=== PATIENT | female | born 1990 | race Caucasian/White ===

== ENCOUNTER 2020-07-11 17:15 | Outpatient (CLI) | payer MEDICAID ==
[~2020-07-11] VITALS: Ht 167.6 cm; Wt 69.0 kg
[2020-07-11 18:02] LABS: MICROSCOPIC INDICATED
[2020-07-11 18:07] LABS: BASOPHILS # (AUTO) 0.03 x10^3/uL (0-0.1); BASOPHILS % (AUTO) 0 % (0-1); EOSINOPHILS # (AUTO) 0.06 x10^3/uL (0-0.4); EOSINOPHILS % (AUTO) 1 % (1-7); LYMPHOCYTES # (AUTO) 1.53 x10^3/uL (1-3.4); LYMPHOCYTES % (AUTO) 15 % (22-44); MD NO; MEAN CORPUSCULAR HEMOGLOBIN 28.6 pg (27.0-34.8); MEAN CORPUSCULAR HGB CONC 32.7 g/dL (32.4-35.8); MEAN CORPUSCULAR VOLUME 87.5 fL (80-100); MEAN PLATELET VOLUME 7.7 fL (7.4-10.4); MONOCYTES # (AUTO) 0.93 x10^3/uL (0.2-0.8); MONOCYTES % (AUTO) 9 % (2-9); NEUTROPHILS # (AUTO) 7.97 x10^3/uL (1.8-6.8); NEUTROPHILS % (AUTO) 76 % (42-75); PLATELET COUNT 250 x10^3/uL (130-400); RED BLOOD COUNT 3.56 x10^6/uL (3.82-5.3); RED CELL DISTRIBUTION WIDTH 14.2 % (9.6-15.2)
[2020-07-11 18:16] LABS: ALANINE AMINOTRANSFERASE 16 U/L (12-78); ALBUMIN 2.6 g/dL (3.4-5.0); ANION GAP 10 mmol/L (5-15); CALCIUM 8.7 mg/dL (8.5-10.1); CHLORIDE 109 mmol/L (98-107); CREATININE 0.63 mg/dL (0.55-1.02)
[2020-07-11 18:17] LABS: BILIRUBIN, DIRECT < 0.1 mg/dL (0.1-0.2)
[2020-07-11 18:18] LABS: ALKALINE PHOSPHATASE 129 U/L (45-117); BILIRUBIN,TOTAL 0.3 mg/dL (0.2-1.0); TOTAL PROTEIN 6.1 g/dL (6.4-8.2)
[2020-07-11] MEDS ORDERED: BUTALBIT/ACETAMIN/CAFF/CODEINE CAPSULE PO PRN (18:30)
== END 2020-07-11 19:46 | disposition home or self-care (01) ==
LOC: LDOP 17:15
PROVIDERS: ATTEND Obstetrics & Gynecology
DX: O26.893 Other specified pregnancy related conditions, third trimester (principal); H53.8 Other visual disturbances; Z3A.39 39 weeks gestation of pregnancy
CPT/HCPCS: 36415; 59025; 80053; 81001; 82248; 82570; 84156; 84550; 85025; 87086

== ENCOUNTER 2020-07-13 11:33 | Inpatient (IN) | payer MEDICAID ==
[~2020-07-13] VITALS: Ht 166.4 cm; Wt 69.1 kg
[2020-07-15] MEDS ORDERED: PREN1TAB60 PO (11:17)
[2020-07-15] MEDS ORDERED: OXYTOCIN 30U/ 0.9% NaCL 500ML 500 ML IV PRN (11:31)
[2020-07-15] MEDS ORDERED: OXYTOCIN 30U/ 0.9% NaCL 500ML 500 ML IV ONE (11:31)
[2020-07-15] MEDS ORDERED: MISOPROSTOL 25 MCG TABLET ONE (11:38)
[2020-07-15] MEDS ORDERED: MISOPROSTOL 200 MCG TABLET ONE (11:38)
[2020-07-15] MEDS ORDERED: OXYTOCIN 30U/ 0.9% NaCL 500ML 500 ML ONE (11:38)
[2020-07-15] MEDS ORDERED: NEWBORN KIT ONE (11:38)
[2020-07-15] MEDS ORDERED: LIDOCAINE 1%, 20ML ONE (11:38)
[2020-07-15 11:59] VITALS: BP 120/74
[2020-07-15] MEDS ORDERED: FENTANYL PF 100 MCG/2ML IV PRN (12:00)
[2020-07-15] MEDS ORDERED: CALCIUM CARBONATE 500 MG TAB.CHEW PO PRN (12:00)
[2020-07-15] MEDS ORDERED: MISOPROSTOL 25 MCG TABLET VG PRN (12:00)
[2020-07-15] MEDS ORDERED: TERBUTALINE 1 MG/ML, 1ML SQ PRN (12:00)
[2020-07-15] MEDS ORDERED: ONDANSETRON 2MG/ML, 2ML IVPush PRN (12:00)
[2020-07-15] MEDS ORDERED: TERBUTALINE 1 MG/ML, 1ML IVPush PRN (12:00)
[2020-07-15 12:10] LABS: BASOPHILS # (AUTO) 0.04 x10^3/uL (0-0.1); BASOPHILS % (AUTO) 0 % (0-1); EOSINOPHILS # (AUTO) 0.17 x10^3/uL (0-0.4); EOSINOPHILS % (AUTO) 2 % (1-7); LYMPHOCYTES % (AUTO) 15 % (22-44); MD NO; MEAN CORPUSCULAR HEMOGLOBIN 28.8 pg (27.0-34.8); MEAN CORPUSCULAR HGB CONC 33.3 g/dL (32.4-35.8); MEAN CORPUSCULAR VOLUME 86.4 fL (80-100); MONOCYTES # (AUTO) 0.99 x10^3/uL (0.2-0.8); MONOCYTES % (AUTO) 9 % (2-9); NEUTROPHILS # (AUTO) 7.92 x10^3/uL (1.8-6.8); NEUTROPHILS % (AUTO) 74 % (42-75); PLATELET COUNT 249 x10^3/uL (130-400); RED BLOOD COUNT 3.44 x10^6/uL (3.82-5.3); RED CELL DISTRIBUTION WIDTH 14.4 % (9.6-15.2)
[2020-07-15 19:27] VITALS: BP 133/75
[2020-07-15] MEDS: D5%-LACTATED RINGERS 1,000 ML IV SCH (19:31)
[2020-07-15] MEDS ORDERED: FENTANYL PF 100 MCG/2ML ONE (20:25)
[2020-07-15] MEDS: FENTANYL PF 100 MCG/2ML IVPush PRN (20:29)
[2020-07-16] MEDS ORDERED: FENTANYL PF 100 MCG/2ML ONE ×4 (01:44→15:48)
[2020-07-16] MEDS: FENTANYL PF 100 MCG/2ML IVPush PRN ×2 (01:47→07:50)
[2020-07-16] MEDS: D5%-LACTATED RINGERS 1,000 ML IV SCH ×4 (03:31→19:31)
[2020-07-16] MEDS: LACTATED RINGERS 1,000 ML IV SCH ×5 (08:46→19:31)
[2020-07-16] MEDS ORDERED: FENTANYL/BUPIV./NS/PF 250 ML EPIDCONT ONE (09:15)
[2020-07-16] MEDS ORDERED: BUPIVACAINE 0.25% ONE ×2 (09:15→15:48)
[2020-07-16 19:20] VITALS: BP 138/71
[2020-07-16] MEDS ORDERED: OXYTOCIN 30U/ 0.9% NaCL 500ML 500 ML IV ONE (19:37)
[2020-07-16] MEDS ORDERED: ONDANSETRON 2MG/ML, 2ML ONE (21:17)
[2020-07-17] MEDS: LACTATED RINGERS 1,000 ML IV SCH ×7 (01:56→23:00)
[2020-07-17] MEDS ORDERED: FENTANYL/BUPIV./NS/PF 250 ML EPIDCONT ONE (03:17)
[2020-07-17] MEDS: D5%-LACTATED RINGERS 1,000 ML IV SCH (03:31)
[2020-07-17] MEDS ORDERED: FENTANYL/BUPIV./NS/PF 250 ML EPIDCONT SCH (04:27)
[2020-07-17] MEDS ORDERED: LACTATED RINGERS 1,000 ML IVBOLUS PRN (04:30)
[2020-07-17] MEDS ORDERED: ONDANSETRON 2MG/ML, 2ML IVPush PRN (04:30)
[2020-07-17] MEDS ORDERED: EPHEDRINE 50 MG/ML, 1ML IVPush PRN (04:30)
[2020-07-17] MEDS ORDERED: BUPIVACAINE 0.25% ONE ×2 (04:53→09:17)
[2020-07-17] MEDS ORDERED: DIPHENHYDRAMINE 50 MG/ML, 1ML ONE (04:53)
[2020-07-17] MEDS ORDERED: DIPHENHYDRAMINE 50 MG/ML, 1ML IVPush ONE (06:00)
[2020-07-17] MEDS ORDERED: LIDOCAINE/MPF 2%-EPI 1:200K, 20 ML ONE ×2 (07:21→08:59)
[2020-07-17] MEDS ORDERED: AZITHROMYCIN 500 MG in SODIUM CHLORIDE 0.9% 250 ML IV ONE (09:00)
[2020-07-17] MEDS ORDERED: LIDOCAINE 2%, 20ML ONE (09:17)
[2020-07-17] MEDS ORDERED: LIDOCAINE/PF 1.5%-EPI 1:200K, 30ML ONE (09:17)
[2020-07-17] MEDS ORDERED: METOCLOPRAMIDE 5 MG/ML, 2ML ONE (09:43)
[2020-07-17] MEDS ORDERED: METOCLOPRAMIDE 5 MG/ML, 2ML IV ONE (10:00)
[2020-07-17] MEDS ORDERED: SODIUM CITRATE/CITRIC ACID 30 ML UDC PO ONE (10:00)
[2020-07-17] MEDS ORDERED: morphine SULFATE/PF 0.5 MG/ML, 10ML ONE (10:55)
[2020-07-17] MEDS ORDERED: SODIUM CHLORIDE 0.9% PF 10ML ONE (10:57)
[2020-07-17] MEDS ORDERED: CEFAZOLIN 1,000 MG ONE (10:57)
[2020-07-17] MEDS ORDERED: OXYTOCIN 10 UNITS/ML, 1ML ONE (10:57)
[2020-07-17] MEDS ORDERED: ONDANSETRON 2MG/ML, 2ML ONE (10:57)
[2020-07-17] MEDS ORDERED: WATER-INJECTION,STERILE 10 ML IV ONE (10:57)
[2020-07-17] MEDS ORDERED: PHENYLEPHRINE 10 MG/ML ONE (10:57)
[2020-07-17] MEDS ORDERED: DEXAMETHASONE 4 MG/ML, 1ML ONE (10:57)
[2020-07-17] MEDS ORDERED: KETOROLAC 30 MG/1 ML ONE (10:57)
[2020-07-17] MEDS ORDERED: LIDOCAINE 1%, 20ML ONE (11:00)
[2020-07-17] MEDS: OXYTOCIN 30U/ 0.9% NaCL 500ML 500 ML IV SCH ×2 (12:13→22:13)
[2020-07-17] MEDS ORDERED: OXYcodone/APAP 5/325MG TABLET PO PRN (12:30)
[2020-07-17] MEDS ORDERED: METHYLERGONOVINE 0.2 MG/ML IM PRN (12:30)
[2020-07-17] MEDS ORDERED: TRANEXAMIC ACID 100 MG/ML, 10ML IV ONE (12:30)
[2020-07-17] MEDS ORDERED: MISOPROSTOL 200 MCG TABLET PR PRN (12:30)
[2020-07-17] MEDS: KETOROLAC 30 MG/1 ML IV SCH ×2 (12:30→17:32)
[2020-07-17] MEDS ORDERED: MEPERIDINE/PF 50 MG/ML IM PRN (12:30)
[2020-07-17] MEDS ORDERED: SIMETHICONE 80 MG CHEW TAB PO PRN (12:30)
[2020-07-17] MEDS ORDERED: ONDANSETRON 2MG/ML, 2ML IV PRN (12:30)
[2020-07-17] MEDS ORDERED: CALCIUM CARBONATE 500 MG TAB.CHEW PO PRN (12:30)
[2020-07-17] MEDS ORDERED: morphine SULFATE 10 MG/ML, 1ML IVPush PRN (12:30)
[2020-07-17] MEDS ORDERED: RHOGAM FROM BLOOD BANK 1 NOTE EA IM/IV ONE (12:30)
[2020-07-17] MEDS ORDERED: MISOPROSTOL 200 MCG TABLET ONE (12:35)
[2020-07-17] MEDS ORDERED: TRANEXAMIC ACID 100 MG/ML, 10ML ONE (13:06)
[2020-07-17] MEDS ORDERED: METHYLERGONOVINE 0.2 MG/ML IM ONE (13:07)
[2020-07-17 14:10] VITALS: BP 110/76
[2020-07-17 14:20] VITALS: BP 105/74
[2020-07-17 16:20] VITALS: BP 105/74
[2020-07-17] MEDS ORDERED: GENTAMICIN PER PHARMACY MC PRN (17:30)
[2020-07-17] MEDS ORDERED: ACETAMINOPHEN 325 MG TABLET PO PRN (17:30)
[2020-07-17] MEDS: CLINDAMYCIN PMX 300MG/50ML 50 ML IV SCH ×2 (18:18→23:52)
[2020-07-17 19:34] LABS: MD YES; MEAN CORPUSCULAR HEMOGLOBIN 28.3 pg (27.0-34.8); MEAN CORPUSCULAR HGB CONC 32.6 g/dL (32.4-35.8); MEAN CORPUSCULAR VOLUME 87.1 fL (80-100); MEAN PLATELET VOLUME 7.6 fL (7.4-10.4); PLATELET COUNT 217 x10^3/uL (130-400); RED BLOOD COUNT 2.65 x10^6/uL (3.82-5.3); RED CELL DISTRIBUTION WIDTH 15.2 % (9.6-15.2)
[2020-07-17 19:45] VITALS: BP 98/61
[2020-07-17 19:53] LABS: <RBC MORPHOLOGY> NORMAL; BAND#(MANUAL) 0.26 x10^3/uL; BANDS%(MANUAL) 1 % (0-7); LYMPH#(MANUAL) 0.78 x10^3/uL (1-3.4); LYMPHS% (MANUAL) 3 % (22-44); MONOS#(MANUAL) 1.04 x10^3/uL (0.3-2.7); MONOS% (MANUAL) 4 % (2-9); SEG#(MANUAL) 23.92 x10^3/uL (1.8-6.8); SEGS% (MANUAL) 92 % (42-75)
[2020-07-17 19:54] LABS: <PLATELET ESTIMATE> ADEQUATE; <PLT MORPHOLOGY> NORMAL PLT MORPH
[2020-07-17] MEDS ORDERED: PHARMACOKINETIC MONITORING MC PRN (20:00)
[2020-07-17] MEDS ORDERED: GENTAMICIN 150 MG in SODIUM CHLORIDE 0.9% 50 ML IV ONE (20:00)
[2020-07-17 23:00] VITALS: BP 97/61
[2020-07-18] MEDS: KETOROLAC 30 MG/1 ML IV SCH ×3 (00:18→12:04)
[2020-07-18 03:30] VITALS: BP 102/67
[2020-07-18] MEDS: GENTAMICIN 130 MG in SODIUM CHLORIDE 0.9% 50 ML IV SCH ×2 (04:19→13:11)
[2020-07-18] MEDS: LACTATED RINGERS 1,000 ML IV SCH ×3 (04:27→12:27)
[2020-07-18] MEDS: CLINDAMYCIN PMX 300MG/50ML 50 ML IV SCH ×2 (05:37→12:04)
[2020-07-18 08:00] VITALS: BP 104/69
[2020-07-18] MEDS: DOCUSATE 100 MG CAPSULE PO PRN ×2 (08:30→19:21)
[2020-07-18] MEDS: PRENATAL VIT/IRON/FA 1 EACH TABLET PO SCH (08:30)
[2020-07-18] MEDS: OXYcodone/APAP 5/325MG TABLET PO PRN ×2 (17:06→21:39)
[2020-07-18] MEDS: IBUPROFEN 600 MG TABLET PO PRN (19:21)
[2020-07-18 19:35] VITALS: BP 104/69
[2020-07-18 23:20] VITALS: BP 104/67
[2020-07-19] MEDS: OXYcodone/APAP 5/325MG TABLET PO PRN ×3 (01:50→09:14)
[2020-07-19] MEDS: IBUPROFEN 600 MG TABLET PO PRN ×2 (01:50→09:13)
[2020-07-19 07:30] VITALS: BP 122/61
[2020-07-19] MEDS: DOCUSATE 100 MG CAPSULE PO PRN (09:13)
[2020-07-19] MEDS: PRENATAL VIT/IRON/FA 1 EACH TABLET PO SCH (09:13)
[2020-07-19] MEDS ORDERED: DOCU-131 PO (10:56)
[2020-07-19] MEDS ORDERED: OXYC-302 PO (10:58)
[2020-07-19] MEDS ORDERED: IBUP-1222 PO (10:58)
== END 2020-07-19 14:00 | disposition home or self-care (01) | DRG 788 ==
LOC: LDIP 07-15 11:06 → 2NW 07-17 13:52
PROVIDERS: ADMIT Obstetrics & Gynecology; ATTEND Obstetrics & Gynecology
PROC: 10D00Z1 Extraction of Products of Conception, Low, Open Approach (ICD-10-PCS; principal; 2020-07-17)
DX: O48.0 Post-term pregnancy (principal); Z20.828 Contact with and (suspected) exposure to other viral communicable diseases; O62.2 Other uterine inertia; Z37.0 Single live birth; Z3A.40 40 weeks gestation of pregnancy; Z87.891 Personal history of nicotine dependence; Z88.0 Allergy status to penicillin
CPT/HCPCS: 36415; J3490; J7121; 85025; 86592; 86850; 86900; 87635; G0378; J0456; J0690; J1100; J1885; J2274; J2405; J3010; J1200; J1580; J2210; J2370; J2590; J2765; J7050; J7120